=== PATIENT | female | born 1965 | race Caucasian/White ===

== ENCOUNTER 2023-09-05 16:39 | Emergency (ER) | payer SELFPAY ==
[~2023-09-05] VITALS: Ht 165.1 cm; Wt 72.6 kg
[~2023-09-05 16:39] MED LIST: PREN-234
[2023-09-05 17:22] VITALS: BP 133/85; PULSE 68; RESP 18; TEMP 97.6; O2SAT 98
== END 2023-09-05 20:27 | disposition left against medical advice (07) ==
LOC: MED 16:39
DX: M79.675 Pain in left toe(s) (principal); Z53.21 Procedure and treatment not carried out due to patient leaving prior to being seen by health care provider
CPT/HCPCS: 99281